=== PATIENT | female | born 1960 | race Caucasian/White ===

== ENCOUNTER 2024-01-07 06:47 | Emergency (ER) | payer MEDICARE, SELFPAY ==
[2024-01-07 06:55] VITALS: BP 137/74
[2024-01-07 07:09] VITALS: BMI 28.0
--- NOTE | 2024-01-07 07:52 | ED.GENMED ---
History of Present Illness
General
Chief Complaint: Cold/Flu/URI Symptoms
Source: patient
Time Seen by Provider: 01/07/24 07:19
Travel History
Have you had any contact with someone who has COVID-19?: No
Do you have any symptoms of coronavirus? Fever > 100 degrees, chills, cough, shortness of breath, sore throat, loss of taste or smell, muscle aches, or headache?: Yes
Symptoms:: cough
History of Present Illness
History of Present Illness:
63-year-old female with past medical history of hypercholesterolemia, GERD, non-Hodgkin's lymphoma, recently diagnosed with COVID at the end of November and has since tested negative twice but still with cough, sinus congestion, generalized fatigue,
left-sided otalgia. Patient took some NyQuil last night for relief but states this did not help much. She notes that she tested positive while on vacation in [place]. She states she felt quite unwell for about 2-1/2 days but started to feel a lot
better prior to returning home and then started to feel unwell again upon getting home. Patient states that there were 2 other people who are sick with viral-like symptoms during their trip. She has not had any fevers, chills, rigors, GI related
symptoms or any other concerns.
Past History
Past History
ED Past Medical History: Cancer (Non-Hodgkin's lymphoma), GERD, Hypercholesterolemia and Psychiatric (Depression)
ED Past Surgical History: Cholecystectomy, Urological (Kidney stone, stent exchange) and Other (Abdominoplasty, cervical lymph node removal, nasal surgery)
Social History
Tobacco: Non-smoker
Alcohol: None
Drug: None
Personal:
Living: with family
Employment: Employed
Review of Systems
Review of Systems
All Other Systems: ROS reviewed and negative except as documented in HPI and ROS
Phy Exam
Physical Exam
Physical Exam:
GENERAL: Alert , in no apparent distress,, persistent cough noted
Head: NCAT
EYE: conjunctiva clear
NECK: Supple
ENT: o/p clr, mmm. Left TM has very slight erythema along the proximal portion, right TM normal
CARDIAC: Regular rate and rhythm
LUNGS: Clear breath sounds bilaterally, no acute respiratory distress, no wheezes/rales/rhonchi
NEUROLOGICAL: Alert and oriented
SKIN: Warm and dry, skin intact.
MUSCULOSKELETAL: well perfused. No edema
PSYCH: Normal and appropriate interaction.
Scores
Heart Failure Risk
Heart Failure Risk Score: Not Applicable
Heart Score for Chest Pain Patients
STEMI patient?: Not applicable
Withdrawal Assessment of Alcohol
Withdrawal Assessment Completed?: Not applicable
Course
Orders/Labs/Results
Orders:
Orders
01/07/24 07:46
Complete Blood Count/With Diff Urgent
Comprehensive Metabolic Panel Urgent
D-Dimer Urgent
01/07/24 09:04
CR Chest - 2 Views Urgent
Comment:
Reason For Exam: recent covid, continued cough and SOB
01/07/24 09:06
Albuterol Nebs [Ventolin Nebules] 2.5 mg INH R NOW STA
Abnormal Lab Results
01/07/24
07:46
MCH 31.7 H pg
(27.0-31.0)
Absolute Neuts (auto) 7.6 H 10^3/uL
(1.4-6.5)
Absolute Monos (auto) 0.7 H 10^3/uL
(0.1-0.6)
Neutrophils % 76.6 H %
(42.2-75.2)
Lymphocytes % 13.1 L %
(20.5-51.1)
Creatinine 0.5 L mg/dL
(0.6-1.0)
Glucose 110 H mg/dl
(70-99)
Total Protein 5.9 L g/dl
(6.3-8.2)
01/07/24 07:46
01/07/24 07:46
Vital Signs
Initial and Last Documented VS:
Initial Vital Signs
Temp Pulse Resp BP Pulse Ox
97.9 F 78 18 137/74 97
01/07/24 06:55 01/07/24 06:55 01/07/24 06:55 01/07/24 06:55 01/07/24 06:55
Last Documented Vital Signs
Temp Pulse Resp BP Pulse Ox
97.9 F 72 16 145/90 94
01/07/24 06:55 01/07/24 08:00 01/07/24 08:00 01/07/24 10:01 01/07/24 10:01
MDM/Problems Addressed
Differential Diagnosis Includes:
Post COVID syndrome, pneumonia, pulmonary embolism given her recent COVID illness and travel, otitis media/externa
MDM/Problems Addressed:
63-year-old female presenting to the emergency department for evaluation of persistent cold-like symptoms in the setting of recent COVID illness. She did state that she was feeling a little bit better but then started to feel unwell again upon
returning home from her vacation. Patient does have a persistent dry cough during the exam but is otherwise hemodynamically stable. There is no tachycardia, tachypnea nor hypoxia. Given her recent travel combined with recent COVID illness and
history of cancer will check labs including a D-dimer. If dimer is negative will obtain chest x-ray, if positive will obtain CTA of the chest. Reassessment and disposition plan following.
Chronic conditions affecting care: Cancer
*Radiology
Radiology exam reviewed: preliminary read by ED provider (Normal chest x-ray)
*Pulse Oximetry
Patient hypoxic: no
*Junior Accountant Bookkeeper Interpretation
Rate: normal
Rhythm: sinus
*Critical Care Note
Total Time (30-74mins, 75-104mins- exclusive of procedures): Not Applicable
Comment
Comment:
Patient D-dimer negative. Will order CXR. Patient with continuous cough. Will order albuterol neb for symptomatic relief
Patient Management
Escalation/DeEscalation of care consider admission/obs:
Patient's chest x-ray unremarkable. Mild improvement of symptoms with nebulizer. Stable for discharge home. Prescription for Medrol Dosepak and albuterol inhaler sent to pharmacy. Patient aware of return precautions.
ED Attending Note
-
Portions of this chart may have been created with voice recognition software.� Occasional wrong word or��sound alike� substitutions may have occurred due to the inherent limitations of voice recognition software.
Discharge Plan
Departure
Patient Disposition: Home (Routine Discharge)
Date of Disposition: 01/07/24
Time of Disposition: 09:40
Patient with high blood pressure during this ER visit?: No
Discharge Problem:
Cough
Instructions: Acute Bronchitis, Adult (DC)
Prescriptions:
New
methylprednisolone [Medrol (Carlos)] 4 mg tablets,dose pack
4 mg PO DIRECTED Qty: 21 0RF
albuterol sulfate [ProAir HFA] 90 mcg/actuation HFA aerosol inhaler
1 puff inhalation Q4HPRN PRN (Reason: shortness of breath) Qty: 6.7 0RF
No Action
fenofibrate nanocrystallized 145 MG tablet
145 mg PO QPM
Vitamin C 1,000 mg Tablet Extended Release
1,000 mg PO HS
omeprazole 40 mg Capsule,Delayed Release(Dr/Ec)
40 mg PO HS
chlorhexidine gluconate 0.12 % Mouthwash
15 ml BUCCAL DAILY
calcium carbonate-vitamin D3 [Calcium 600 with Vitamin D3] 600 mg-10 mcg (400 unit) Capsule
1 cap PO HS
Centrum Silver Women 8 mg iron-400 mcg-50 mcg Tablet
1 tab PO HS
mecobalamin (vitamin B12) 1,000 mcg Tablet,Chewable
1,000 mcg PO HS
mupirocin 2 % ointment
1 applic topical BID Qty: 1 0RF
clindamycin HCl 300 mg capsule
300 mg PO QID Qty: 20 0RF
ondansetron 4 mg tablet,disintegrating
4 mg PO Q6H PRN (Reason: n/v) Qty: 20 0RF
Rx Instructions:
take 1/2h b/f pain med if recurrent nausea
allow to dissolve in mouth w/o water
oxycodone 5 mg tablet
5 mg PO Q6H PRN (Reason: 1 tab moderate pain, 2 tabs severe pain) Qty: 30 0RF
Rx Instructions:
Ongoing therapy
cyclobenzaprine 5 mg tablet
5 mg PO BID Qty: 30 0RF
Referrals:
Leroy Askew DO [Family Provider] -
Interventions
Interventions:
*Risk Screen - Suicide Last Done: 01/07/24 07:09
*General Assessment Last Done: 01/07/24 07:09
*Neglect/Abuse Screening Last Done: 01/07/24 07:09
*ED COVID-19 Vaccine History Last Done: 01/07/24 06:55
*Nursing Disposition Last Done: 01/07/24 10:01
ED- Pulmonary Assessment Last Done: 01/07/24 07:09
Discharge Date and Time
Discharge Date/Time: 01/07/24 09:55
Print Language: [place]
[2024-01-07 07:54] LABS: % Basophils 0.3 % (0-2); % Immature Granulocytes 0.4 % (0-0.5); % Lymphocytes 13.1 % (20.5-51.1); % Monocytes 6.6 % (1.7-9.3); % Neutrophils 76.6 % (42.2-75.2); Absolute Eosinophils 0.3 10^3/uL (0-0.7); Absolute Lymphocytes 1.3 10^3/uL (1.2-3.4); Absolute Monocytes 0.7 10^3/uL (0.1-0.6); Absolute Neutrophils 7.6 10^3/uL (1.4-6.5); Hematocrit 40.9 % (37.0-47.0); Hemoglobin 14.3 g/dL (12.0-16.0); Mean Corpuscular Hgb 31.7 pg (27.0-31.0); Mean Corpuscular Volume 90.7 fL (81.0-99.0); Mean Platelet Volume 10.2 fL (7.4-10.4); Nucleated Red Blood Cells % 0 %; Platelet Count 147 10^3/uL (130-400); Red Blood Cell Count 4.51 10^6/uL (4.20-5.40); Red Cell Dist. Width 12.7 % (11.5-14.5); White Blood Cell Count 9.9 10^3/uL (4.8-10.8)
[2024-01-07 08:00] VITALS: BP 124/72
[2024-01-07 08:13] LABS: ALT (SGPT) 22 U/L (0-35); AST (SGOT) 21 U/L (14-36); Albumin 3.8 g/dl (3.5-5.0); Alkaline Phosphatase 80 U/L (38-126); Blood Urea Nitrogen 15 mg/dl (7-17); Calcium 9.1 mg/dl (8.4-10.2); Carbon Dioxide 28 mmol/L (22-30); Chloride 106 mmol/L (98-107); Estimated Creatinine Clearance 96 ml/min; Glucose 110 mg/dl (70-99); Potassium 3.7 mmol/L (3.5-5.1); Sodium 141 mmol/L (135-145); Total Bilirubin 0.5 mg/dl (0.2-1.3); Total Protein 5.9 g/dl (6.3-8.2); eGFR > 60.00
[2024-01-07 09:02] LABS: D-Dimer < 0.27 ug/mlFEU (0.00-0.50)
[2024-01-07] MEDS: VENTOLIN NEBULES 2.5 MG INH (09:09)
[2024-01-07 10:01] VITALS: BP 145/90
== END 2024-01-07 09:55 | disposition home or self-care (01) ==
LOC: EMR 06:47
PROVIDERS: Physician Assistant Medical; EMERGENCY PHYSICIAN Emergency Medicine; FAMILY PHYSICIAN Family Medicine
DX: R05.9 Cough, unspecified (principal); E78.00 Pure hypercholesterolemia, unspecified; K21.9 Gastro-esophageal reflux disease without esophagitis; Z85.72 Personal history of non-Hodgkin lymphomas; Z87.442 Personal history of urinary calculi; Z90.49 Acquired absence of other specified parts of digestive tract
CPT/HCPCS: 99283; 71046; 80053; 85025; 85379

== ENCOUNTER → 2024-02-03 07:08 | Outpatient (REF) | payer MEDICARE, SELFPAY | LOC: HWRAD 07:08 | PROVIDERS: ATTENDING PHYSICIAN Otolaryngology; FAMILY PHYSICIAN Family Medicine | DX: H92.02 Otalgia, left ear (principal) | CPT/HCPCS: 70486 ==

== ENCOUNTER 2024-02-11 06:04 | Day surgery (SDC) | payer MEDICARE, SELFPAY ==
--- NOTE | 2023-12-04 08:45 | CM ---
Addendum entered by Katie Mcrae 01/08/24 09:38:
Surgery date was changed to 02/10.
Original Note:
Patient is scheduled for an elective L TKR on 01/14/24- she is a same day patient. Spoke with patient prior to surgery. Patient had a R TKR at 2017 (also as a same day patient). Reintroduced role of Orthopedic Navigator. Patient reports that she
lives with her in a two story home. There are no steps to enter, a step to the foyer and a flight of steps, with a landing to the second floor (left ascending rail). There is a powder room on the first floor. She currently functions
independently. She has no DME. She had VN services through [facility] after her prior TKR. PCP is Leroy Askew.
Discussed orthopedic program and post surgical plans. Reviewed that she will have VN services initially and will then start outpatient PT. Patient selects VN (face sheet faxed to [facility] to facilitate confirmation of benefits) for her home care
needs and will go to [facility] for outpatient PT.
Patient is in agreement with plan and states that her will be home with her.
Patient will complete online education.
Plan: Orthopedic Navigator will remain available to assist with the care of patient and will reassess discharge needs after surgery.
[2023-12-29 08:40] VITALS: BMI 28.0
[2023-12-29 09:53] LABS: Hematocrit 43.4 % (37.0-47.0); Hemoglobin 14.9 g/dL (12.0-16.0); Mean Corp Hgb Conc. 34.3 g/dL (33.0-37.0); Mean Corpuscular Hgb 31.4 pg (27.0-31.0); Mean Corpuscular Volume 91.6 fL (81.0-99.0); Mean Platelet Volume 10.4 fL (7.4-10.4); Platelet Count 174 10^3/uL (130-400); Red Blood Cell Count 4.74 10^6/uL (4.20-5.40); Red Cell Dist. Width 12.8 % (11.5-14.5)
[2023-12-29 10:24] LABS: ALT (SGPT) 24 U/L (0-35); AST (SGOT) 24 U/L (14-36); Albumin 4.2 g/dl (3.5-5.0); Alkaline Phosphatase 90 U/L (38-126); Blood Urea Nitrogen 18 mg/dl (7-17); Calcium 9.1 mg/dl (8.4-10.2); Carbon Dioxide 27 mmol/L (22-30); Chloride 106 mmol/L (98-107); Estimated Creatinine Clearance 96 ml/min; Glucose 117 mg/dl (70-99); Sodium 141 mmol/L (135-145); Total Bilirubin 0.4 mg/dl (0.2-1.3); Total Protein 6.3 g/dl (6.3-8.2); eGFR > 60.00
[2023-12-29 12:10] LABS: Glycohemoglobin (HgbA1c) 6.2 % (4.0-5.6)
[2023-12-29 15:16] VITALS: BMI 28.0
[2024-02-11] VITALS (24 sets, daily range): BP systolic 83–123; BP diastolic 41–78; PULSE 76; O2SAT 95; BMI 28.0
[2024-02-11] MEDS: NORMOSOL-R 1000 IV ×2 (06:38→09:30)
[2024-02-11] MEDS: CELEBREX 200 MG PO (06:39)
[2024-02-11] MEDS: TYLENOL 650 MG PO (06:39)
--- NOTE | 2024-02-11 09:47 | CM ---
Patient had planned L TKR today. Met with patient and her at bedside to review discharge plans. Patient will be returning home today with services through VN. On Friday, 02/15, patient will start outpatient PT at [facility]. Reviewed MD
follow up in two weeks and patient has already scheduled her appointment.
Patient has her rolling walker here with her.
PT and VN were kept updated as to progress and discharge plans.
[2024-02-11] MEDS: ROXICODONE 5 MG PO (10:42)
[2024-02-11] MEDS: ANCEF 5 IV (11:02)
[2024-02-11] MEDS: ProAmatine 5 MG PO (13:48)
[2024-02-11] MEDS: TYLENOL 1000 MG PO (13:53)
== END 2024-02-11 15:25 | disposition home or self-care (01) ==
LOC: SDS 06:04
PROVIDERS: ATTENDING PHYSICIAN Orthopaedic Surgery; FAMILY PHYSICIAN Family Medicine; OTHER PHYSICIAN Physician Assistant Medical
DX: M17.12 Unilateral primary osteoarthritis, left knee (principal)
CPT/HCPCS: 27447; 36415; 73560; 80053; 83036; 85027; 87070; 93005; 97116; 97161; C1713; C1776

== ENCOUNTER 2024-08-02 06:20 | Day surgery (SDC) | payer MEDICARE, SELFPAY | END 2024-08-02 12:13 | disposition home or self-care (01) | LOC: GI 06:20 | PROVIDERS: ATTENDING PHYSICIAN Internal Medicine Gastroenterology | DX: Z12.11 Encounter for screening for malignant neoplasm of colon (principal); D12.5 Benign neoplasm of sigmoid colon; Z86.0100 Personal history of colon polyps, unspecified; K57.30 Diverticulosis of large intestine without perforation or abscess without bleeding; K64.8 Other hemorrhoids; R12 Heartburn; K44.9 Diaphragmatic hernia without obstruction or gangrene; K31.7 Polyp of stomach and duodenum; K22.2 Esophageal obstruction; K31.89 Other diseases of stomach and duodenum | CPT/HCPCS: 45385; 43239; 88305; 88342 ==

== ENCOUNTER → 2024-11-25 07:14 | Outpatient (REF) | payer MEDICARE, SELFPAY | LOC: HWRCS 07:14 | PROVIDERS: ATTENDING PHYSICIAN Internal Medicine Cardiovascular Disease; FAMILY PHYSICIAN Family Medicine | DX: R94.31 Abnormal electrocardiogram [ECG] [EKG] (principal) | CPT/HCPCS: 93306 ==

== ENCOUNTER → 2024-12-07 07:50 | Outpatient (REF) | payer MEDICARE, SELFPAY | LOC: HWWDC 07:50 | PROVIDERS: ATTENDING PHYSICIAN Advanced Practice Midwife; FAMILY PHYSICIAN Family Medicine | DX: Z12.31 Encounter for screening mammogram for malignant neoplasm of breast (principal) | CPT/HCPCS: 77063; 77067 ==